=== PATIENT | male | born 1945 | race Caucasian/White ===

== ENCOUNTER 2020-02-28 20:36 | Inpatient (IN) | payer OTHER, MEDICAID, SELFPAY ==
[~2020-02-28] VITALS: Ht 170.2 cm; Wt 108.9 kg
[2020-02-28 20:53] VITALS: BP_SYST 144
[2020-02-28 21:32] LABS: BASOPHILS % (AUTO) 0.6 % (0.0-2.0); EOSINOPHILS # (AUTO) 0.1 K/uL (0.0-0.4); EOSINOPHILS % (AUTO) 1.3 % (0.0-4.0); HEMATOCRIT 41.6 % (36-54); HEMOGLOBIN 12.2 g/dL (14.0-18.0); LYMPHOCYTES # (AUTO) 1.6 K/uL (1.0-5.5); MEAN CORPUSCULAR HEMOGLOBIN 22 pg (27-31); MEAN CORPUSCULAR HGB CONC 29 % (32-36); MEAN CORPUSCULAR VOLUME 75 fL (79.0-98.0); MONOCYTES # (AUTO) 0.7 K/uL (0.0-1.0); MONOCYTES % (AUTO) 7.9 % (1.7-9.3); NEUTROPHILS # (AUTO) 5.9 K/uL (1.8-7.7); NEUTROPHILS % (AUTO) 71.2 % (40.0-70.0); PLATELET COUNT (AUTO) 209 K/uL (130-430); RED BLOOD CELL COUNT(AUTO) 5.53 MIL/uL (4.2-6.2); RED CELL DISTRIBUTION WIDTH 18.7 % (9.0-15.0); WHITE BLOOD COUNT (AUTO) 8.3 K/uL (4.8-10.8)
[2020-02-28] MEDS ORDERED: LISI10TA5 PO (21:34)
[2020-02-28] MEDS ORDERED: LIP20 PO (21:34)
[2020-02-28] MEDS ORDERED: GLIP-201 PO (21:34)
[2020-02-28] MEDS ORDERED: CARV6.2554 PO (21:34)
[2020-02-28] MEDS ORDERED: METF-510 PO (21:34)
[2020-02-28] MEDS ORDERED: WARF5TAB2 PO (21:34)
[2020-02-28] MEDS ORDERED: SPIR25TA6 PO (21:34)
[2020-02-28] MEDS ORDERED: DIPHENHYDRAMINE INJ 50 MG/ML VIAL IVP ONE (21:45)
[2020-02-28 21:48] LABS: INR 1.1 (0.80-1.20); PROTHROMBIN TIME 11.3 SECS (9.5-12.5)
[2020-02-28 22:04] LABS: POTASSIUM 3.6 mmol/L (3.5-5.1); SODIUM SERUM 138 mmol/L (136-145)
[2020-02-28 22:05] LABS: ANION GAP 5 (5-15); CALCIUM 7.7 mg/dL (8.4-11.0); CHLORIDE 98 mmol/L (98-107); CREATININE 0.99 mg/dL (0.55-1.30); GLUCOSE 130 mg/dL (70-99); TOTAL BILIRUBIN 0.4 mg/dL (0.0-1.0); UREA NITROGEN, BLOOD 9 mg/dL (8-21)
[2020-02-28 22:06] LABS: ALANINE AMINOTRANSFERASE 29 U/L (12-78); AMYLASE 79 U/L (0-100); ASPARTATE AMINOTRANSFERASE 29 U/L (10-37); LIPASE 158 U/L (73-393)
[2020-02-29] VITALS (18 sets, daily range): BP systolic 125–177
[2020-02-29 00:14] LABS: BILIRUBIN,URINE NEGATIVE (NEGATIVE); BLOOD, URINE NEGATIVE (NEGATIVE); CLARITY/URINE CLEAR (CLEAR); COLOR,URINE YELLOW (YELLOW); GLUCOSE,URINE NEGATIVE (NEGATIVE); KETONES,URINE NEGATIVE (NEGATIVE); LEUKOCYTE ESTERASE ,URINE NEGATIVE (NEGATIVE); NITRITE, URINE NEGATIVE (NEGATIVE); PROTEIN URINE 2+ (NEGATIVE); UROBILINOGEN,URINE 0.2 (0.2-1.0)
[2020-02-29 00:25] LABS: BACTERIA,URINE FEW /HPF (None Seen); RBC,URINE 0-3 /HPF (0-3); WBC,URINE 0-3 /HPF (0-3)
[2020-02-29] MEDS ORDERED: MORPHINE 2 MG/ML INJ. SYRINGE IVP PRN (01:00)
[2020-02-29] MEDS ORDERED: ALBUTEROL MDI INHALATION 8 GM INH INH PRN ×2 (01:30→04:45)
[2020-02-29] MEDS ORDERED: NACL 0.9% 1,000 ML IV ONE (01:30)
[2020-02-29] MEDS ORDERED: AZITHROMYCIN 500 MG/VIAL (ZITHROMAX) IV ONE (02:33)
[2020-02-29] MEDS: cefTRIAXone 1 GM IVPB PREMIX 50 ML IV SCH (02:43)
[2020-02-29] MEDS: AZITHROMYCIN 500 MG in NS 250 ML IV SCH (02:44)
[2020-02-29] MEDS: ATORVASTATIN 20 MG TABLET PO SCH (09:33)
[2020-02-29] MEDS: CARVEDILOL 6.25 MG TABLET (COREG) PO SCH ×2 (09:34→20:16)
[2020-02-29] MEDS: glipiZIDE XL 5 MG TAB ( GLUCOTROL XL) PO SCH (09:34)
[2020-02-29] MEDS: LISINOPRIL 10 MG TABLET (PRINIVIL) PO SCH (09:34)
[2020-02-29] MEDS ORDERED: FUROSEMIDE 20 MG/2 ML VIAL IVP ONE (15:45)
[2020-02-29] MEDS: INSULIN REGULAR, HUMAN 100 UNITS/ML, 10 ML VIAL (humuLIN R) SUBCUT PRN (20:22)
[2020-03-01] VITALS (19 sets, daily range): BP systolic 86–138
[2020-03-01] MEDS: cefTRIAXone 1 GM IVPB PREMIX 50 ML IV SCH (02:15)
[2020-03-01] MEDS: AZITHROMYCIN 500 MG in NS 250 ML IV SCH (02:52)
[2020-03-01 06:41] LABS: MEAN CORPUSCULAR HEMOGLOBIN 22 pg (27-31); MONOCYTES # (AUTO) 0.6 K/uL (0.0-1.0); WHITE BLOOD COUNT (AUTO) 9.6 K/uL (4.8-10.8)
[2020-03-01 06:50] LABS: BASOPHILS % (AUTO) 0.3 % (0.0-2.0); EOSINOPHILS % (AUTO) 0.3 % (0.0-4.0); HEMATOCRIT 41.9 % (36-54); HEMOGLOBIN 12.1 g/dL (14.0-18.0); LYMPHOCYTES % (AUTO) 10.1 % (20.5-51.5); MEAN CORPUSCULAR HGB CONC 29 % (32-36); MEAN CORPUSCULAR VOLUME 77 fL (79.0-98.0); NEUTROPHILS % (AUTO) 83.3 % (40.0-70.0); PLATELET COUNT (AUTO) 202 K/uL (130-430); RED BLOOD CELL COUNT(AUTO) 5.43 MIL/uL (4.2-6.2); RED CELL DISTRIBUTION WIDTH 18.2 % (9.0-15.0)
[2020-03-01] MEDS: glipiZIDE XL 5 MG TAB ( GLUCOTROL XL) PO SCH (08:41)
[2020-03-01] MEDS: CARVEDILOL 6.25 MG TABLET (COREG) PO SCH ×2 (08:42→21:00)
[2020-03-01] MEDS: LISINOPRIL 10 MG TABLET (PRINIVIL) PO SCH (08:43)
[2020-03-01] MEDS: ATORVASTATIN 20 MG TABLET PO SCH (08:43)
[2020-03-01 09:46] LABS: ALANINE AMINOTRANSFERASE 29 U/L (12-78); ALBUMIN 2.9 g/dL (3.4-4.8); ANION GAP 5 (5-15); ASPARTATE AMINOTRANSFERASE 27 U/L (10-37); CALCIUM 7.3 mg/dL (8.4-11.0); CHLORIDE 99 mmol/L (98-107); CREATININE 1.04 mg/dL (0.55-1.30); GLUCOSE 152 mg/dL (70-99); SODIUM SERUM 140 mmol/L (136-145); TOTAL BILIRUBIN 0.2 mg/dL (0.0-1.0); UREA NITROGEN, BLOOD 12 mg/dL (8-21)
[2020-03-01 09:49] LABS: POTASSIUM 5.8 mmol/L (3.5-5.1)
[2020-03-01] MEDS: INSULIN REGULAR, HUMAN 100 UNITS/ML, 10 ML VIAL (humuLIN R) SUBCUT PRN ×2 (11:47→18:47)
[2020-03-01] MEDS ORDERED: SODIUM POLYSTYRENE SULFONATE 15 GM/60 ML UDBTL PO ONE (12:15)
[2020-03-01] MEDS ORDERED: SODIUM POLYSTYRENE SULFONATE 15 GM/60 ML UDBTL ONE (12:43)
[2020-03-01] MEDS ORDERED: FUROSEMIDE 20 MG/2 ML VIAL IVP ONE (13:15)
[2020-03-01] MEDS ORDERED: ONDANSETRON HCL 4 MG/2 ML VIAL IVP PRN (13:15)
[2020-03-01] MEDS ORDERED: ONDANSETRON HCL 4 MG/2 ML VIAL ONE (14:07)
[2020-03-01] MEDS ORDERED: FUROSEMIDE 20 MG/2 ML VIAL ONE (14:08)
[2020-03-01] MEDS ORDERED: fentaNYL CITRATE/PF 100 MCG/2 ML AMP ONE (15:52)
[2020-03-01] MEDS ORDERED: MORPHINE 4 MG/ML INJ. SYRINGE ONE (15:54)
[2020-03-01] MEDS ORDERED: FUROSEMIDE 40 MG/4 ML VIAL IVP ONE (16:00)
[2020-03-01] MEDS ORDERED: ETOMIDATE 20 MG/ 10 ML VIAL (AMIDATE) IVP ONE (16:10)
[2020-03-01] MEDS ORDERED: VECURONIUM BROMIDE 10 MG/VIAL (NORCURON) IV ONE (16:10)
[2020-03-01] MEDS ORDERED: SUCCINYLCHOLINE CHLORIDE 20 MG/ML(QUELICIN) IVP ONE (16:10)
[2020-03-01] MEDS ORDERED: NOREPINEPHRINE BITARTRATE 4 MG in NS 246 ML IV PRN (16:15)
[2020-03-01] MEDS ORDERED: SODIUM POLYSTYRENE SULFONATE 15 GM/60 ML UDBTL NG ONE (16:15)
[2020-03-01] MEDS ORDERED: COMMUNICATION ORDER XX ONE (16:30)
[2020-03-01] MEDS: PROPOFOL DRIP 100 ML IV PRN ×2 (18:58→22:31)
[2020-03-01] MEDS: FUROSEMIDE 40 MG/4 ML VIAL IVP SCH (22:29)
[2020-03-01] MEDS ORDERED: D5W 1,000 ML IV PRN (22:46)
[2020-03-01] MEDS ORDERED: DEXTROSE 50% JECT 50 ML DISP.SYRIN IVP PRN (23:00)
[2020-03-01] MEDS ORDERED: GLUCOSE 15 GM GEL (in 37.5 GM TUBE) PO PRN (23:00)
[2020-03-02] VITALS (32 sets, daily range): BP systolic 95–176
[2020-03-02] MEDS: DOPamine PREMIX 250 ML IV PRN (01:09)
[2020-03-02] MEDS: cefTRIAXone 1 GM IVPB PREMIX 50 ML IV SCH (01:12)
[2020-03-02] MEDS ORDERED: HEPARIN SODIUM,PORCINE 5000 UNITS/ML VIAL IVP ONE ×2 (01:30)
[2020-03-02] MEDS ORDERED: HEPARIN SODIUM,PORCINE 2000 UNITS/0.4 ML BOLUS IVP PRN ×2 (01:30→08:00)
[2020-03-02] MEDS ORDERED: HEPARIN SODIUM,PORCINE 3000 UNITS/0.6 ML BOLUS IVP PRN ×2 (01:30→08:00)
[2020-03-02] MEDS: AZITHROMYCIN 500 MG in NS 250 ML IV SCH (01:36)
[2020-03-02] MEDS: HEPARIN 25,000 UNITS/D5W 250ML 250 ML IV PRN ×2 (02:08→21:08)
[2020-03-02 08:41] LABS: BASOPHILS % (AUTO) 0.2 % (0.0-2.0); EOSINOPHILS # (AUTO) 0.1 K/uL (0.0-0.4); EOSINOPHILS % (AUTO) 0.7 % (0.0-4.0); HEMOGLOBIN 11.5 g/dL (14.0-18.0); LYMPHOCYTES # (AUTO) 0.8 K/uL (1.0-5.5); LYMPHOCYTES % (AUTO) 9.9 % (20.5-51.5); MEAN CORPUSCULAR HEMOGLOBIN 22 pg (27-31); MEAN CORPUSCULAR HGB CONC 29 % (32-36); MEAN CORPUSCULAR VOLUME 75 fL (79.0-98.0); MONOCYTES # (AUTO) 0.7 K/uL (0.0-1.0); MONOCYTES % (AUTO) 8.2 % (1.7-9.3); NEUTROPHILS # (AUTO) 6.6 K/uL (1.8-7.7); PLATELET COUNT (AUTO) 151 K/uL (130-430); RED BLOOD CELL COUNT(AUTO) 5.18 MIL/uL (4.2-6.2); RED CELL DISTRIBUTION WIDTH 17.7 % (9.0-15.0); WHITE BLOOD COUNT (AUTO) 8.2 K/uL (4.8-10.8)
[2020-03-02] MEDS ORDERED: BISACODYL 10 MG/SUPPOSITORY RC ONE (08:45)
[2020-03-02 08:51] LABS: ANION GAP 4 (5-15); CALCIUM 7.5 mg/dL (8.4-11.0); CHLORIDE 100 mmol/L (98-107); CREATININE 1.19 mg/dL (0.55-1.30); GLUCOSE 92 mg/dL (70-99); POTASSIUM 3.2 mmol/L (3.5-5.1); SODIUM SERUM 143 mmol/L (136-145); UREA NITROGEN, BLOOD 15 mg/dL (8-21)
[2020-03-02 08:59] LABS: ALANINE AMINOTRANSFERASE 23 U/L (12-78); ALBUMIN 2.3 g/dL (3.4-4.8); ASPARTATE AMINOTRANSFERASE 24 U/L (10-37); TOTAL BILIRUBIN 0.6 mg/dL (0.0-1.0)
[2020-03-02] MEDS: glipiZIDE XL 5 MG TAB ( GLUCOTROL XL) PO SCH (09:00)
[2020-03-02] MEDS: FUROSEMIDE 40 MG/4 ML VIAL IVP SCH ×2 (09:36→20:54)
[2020-03-02] MEDS: PANTOPRAZOLE SODIUM 40 MG/VIAL (PROTONIX) IVP SCH (09:36)
[2020-03-02] MEDS: ATORVASTATIN 20 MG TABLET PO SCH (09:37)
[2020-03-02] MEDS: PROPOFOL DRIP 100 ML IV PRN ×5 (09:55→22:42)
[2020-03-02] MEDS: MORPHINE 4 MG/ML INJ. SYRINGE IVP PRN (20:57)
[2020-03-03] VITALS (29 sets, daily range): BP systolic 104–198
[2020-03-03] MEDS: MORPHINE 4 MG/ML INJ. SYRINGE IVP PRN ×3 (01:47→19:54)
[2020-03-03] MEDS: PROPOFOL DRIP 100 ML IV PRN ×5 (01:48→14:07)
[2020-03-03] MEDS: DOPamine PREMIX 250 ML IV PRN (01:49)
[2020-03-03] MEDS: AZITHROMYCIN 500 MG in NS 250 ML IV SCH (01:49)
[2020-03-03] MEDS: cefTRIAXone 1 GM IVPB PREMIX 50 ML IV SCH (01:50)
[2020-03-03] MEDS ORDERED: PROPOFOL DRIP 100 ML IV ONE (05:00)
[2020-03-03 06:56] LABS: BASOPHILS % (AUTO) 0.2 % (0.0-2.0); EOSINOPHILS # (AUTO) 0.1 K/uL (0.0-0.4); EOSINOPHILS % (AUTO) 0.8 % (0.0-4.0); HEMATOCRIT 39.6 % (36-54); HEMOGLOBIN 11.8 g/dL (14.0-18.0); LYMPHOCYTES # (AUTO) 1.1 K/uL (1.0-5.5); LYMPHOCYTES % (AUTO) 12.7 % (20.5-51.5); MEAN CORPUSCULAR HEMOGLOBIN 22 pg (27-31); MEAN CORPUSCULAR HGB CONC 30 % (32-36); MEAN CORPUSCULAR VOLUME 74 fL (79.0-98.0); MONOCYTES # (AUTO) 0.9 K/uL (0.0-1.0); MONOCYTES % (AUTO) 9.6 % (1.7-9.3); NEUTROPHILS # (AUTO) 6.9 K/uL (1.8-7.7); NEUTROPHILS % (AUTO) 76.7 % (40.0-70.0); PLATELET COUNT (AUTO) 163 K/uL (130-430); RED BLOOD CELL COUNT(AUTO) 5.34 MIL/uL (4.2-6.2); WHITE BLOOD COUNT (AUTO) 8.9 K/uL (4.8-10.8)
[2020-03-03 07:09] LABS: ALANINE AMINOTRANSFERASE 16 U/L (12-78); ALBUMIN 2.3 g/dL (3.4-4.8); ANION GAP 4 (5-15); ASPARTATE AMINOTRANSFERASE 25 U/L (10-37); CALCIUM 7.6 mg/dL (8.4-11.0); CHLORIDE 97 mmol/L (98-107); CREATININE 1.25 mg/dL (0.55-1.30); GLUCOSE 179 mg/dL (70-99); SODIUM SERUM 141 mmol/L (136-145); THYROID STIMULATING HORMONE 1.77 uIu/mL (0.36-3.74); TOTAL BILIRUBIN 0.7 mg/dL (0.0-1.0); UREA NITROGEN, BLOOD 13 mg/dL (8-21)
[2020-03-03] MEDS ORDERED: POTASSIUM CHLORIDE 20 MEQ TAB.PRT.SR PO ONE (08:00)
[2020-03-03] MEDS ORDERED: *LOVENOX 1MG/KG Q12H/PHARMACY XX ONE (08:00)
[2020-03-03 08:07] LABS: CHOLESTEROL 116 mg/dL (<200); HDL CHOLESTEROL 36 mg/dL (>45); LDL CHOLESTEROL 61 mg/dL (<100); TRIGLYCERIDES 122 mg/dL (30-150)
[2020-03-03] MEDS: ENOXAPARIN SODIUM 100 MG/ML SYRINGE SUBCUT SCH ×2 (08:40→22:02)
[2020-03-03] MEDS: glipiZIDE XL 5 MG TAB ( GLUCOTROL XL) PO SCH (08:40)
[2020-03-03] MEDS: THEOPHYLLINE ANHYDROUS 200 MG CAP.ER.24H PO SCH ×2 (08:40→21:55)
[2020-03-03] MEDS: ATORVASTATIN 20 MG TABLET PO SCH (08:40)
[2020-03-03] MEDS: PANTOPRAZOLE SODIUM 40 MG/VIAL (PROTONIX) IVP SCH (08:41)
[2020-03-03] MEDS ORDERED: KCL 40 mEq in 100 mL (PREMIX) 100 ML IV ONE (17:30)
[2020-03-03] MEDS ORDERED: OLANZapine IntraMuscular 10 MG VIAL (FOR I.M. INJECTION ONLY) IM ONE (19:15)
[2020-03-03] MEDS: metroNIDAZOLE 500 mg/NS 100 ML IV SCH (21:55)
[2020-03-03] MEDS: FUROSEMIDE 20 MG/2 ML VIAL IVP SCH (21:56)
[2020-03-03] MEDS ORDERED: FUROSEMIDE 20 MG/2 ML VIAL ONE (22:16)
[2020-03-04] VITALS (21 sets, daily range): BP systolic 144–173
[2020-03-04] MEDS: cefTRIAXone 1 GM IVPB PREMIX 50 ML IV SCH (02:51)
[2020-03-04 07:21] LABS: BASOPHILS % (AUTO) 0.2 % (0.0-2.0); EOSINOPHILS # (AUTO) 0.1 K/uL (0.0-0.4); HEMATOCRIT 38.8 % (36-54); HEMOGLOBIN 11.6 g/dL (14.0-18.0); LYMPHOCYTES # (AUTO) 0.7 K/uL (1.0-5.5); LYMPHOCYTES % (AUTO) 10.3 % (20.5-51.5); MEAN CORPUSCULAR HEMOGLOBIN 22 pg (27-31); MEAN CORPUSCULAR HGB CONC 30 % (32-36); MEAN CORPUSCULAR VOLUME 74 fL (79.0-98.0); MONOCYTES # (AUTO) 0.7 K/uL (0.0-1.0); NEUTROPHILS # (AUTO) 5.3 K/uL (1.8-7.7); NEUTROPHILS % (AUTO) 78.5 % (40.0-70.0); PLATELET COUNT (AUTO) 156 K/uL (130-430); RED BLOOD CELL COUNT(AUTO) 5.28 MIL/uL (4.2-6.2); RED CELL DISTRIBUTION WIDTH 17.8 % (9.0-15.0); WHITE BLOOD COUNT (AUTO) 6.8 K/uL (4.8-10.8)
[2020-03-04 07:37] LABS: ALANINE AMINOTRANSFERASE 19 U/L (12-78); ALBUMIN 2.5 g/dL (3.4-4.8); ANION GAP 6 (5-15); ASPARTATE AMINOTRANSFERASE 25 U/L (10-37); C-REACTIVE PROTEIN QUANT 10.6 mg/dL (0-0.5); CALCIUM 7.5 mg/dL (8.4-11.0); CHLORIDE 96 mmol/L (98-107); CREATININE 1.01 mg/dL (0.55-1.30); GLUCOSE 121 mg/dL (70-99); POTASSIUM 3.1 mmol/L (3.5-5.1); SODIUM SERUM 139 mmol/L (136-145); TOTAL BILIRUBIN 0.7 mg/dL (0.0-1.0); UREA NITROGEN, BLOOD 12 mg/dL (8-21)
[2020-03-04] MEDS: PANTOPRAZOLE SODIUM 40 MG/VIAL (PROTONIX) IVP SCH (08:27)
[2020-03-04] MEDS: ATORVASTATIN 20 MG TABLET PO SCH (08:27)
[2020-03-04] MEDS: THEOPHYLLINE ANHYDROUS 200 MG CAP.ER.24H PO SCH ×2 (08:28→21:14)
[2020-03-04] MEDS: metroNIDAZOLE 500 mg/NS 100 ML IV SCH ×2 (08:29→21:13)
[2020-03-04] MEDS ORDERED: ALBUTEROL SULFATE 0.083% 2.5 MG/3 ML VIAL.NEB INH PRN (08:30)
[2020-03-04] MEDS: FUROSEMIDE 20 MG/2 ML VIAL IVP SCH (08:30)
[2020-03-04] MEDS: ENOXAPARIN SODIUM 100 MG/ML SYRINGE SUBCUT SCH ×2 (08:31→21:14)
[2020-03-04] MEDS: glipiZIDE XL 5 MG TAB ( GLUCOTROL XL) PO SCH (08:31)
[2020-03-04] MEDS ORDERED: BISACODYL 5 MG TABLET.DR (DULCOLAX) PO ONE (09:00)
[2020-03-04] MEDS: DOCUSATE SODIUM 100 MG/10 ML UDC PO SCH ×2 (09:07→21:00)
[2020-03-04] MEDS ORDERED: KCL 40 mEq in 100 mL (PREMIX) 100 ML IV ONE (10:00)
[2020-03-04 10:50] LABS: ERYTHROCYTE SEDIMENTATION RATE 31 MM/HR (0-15)
[2020-03-05] MEDS: cefTRIAXone 1 GM IVPB PREMIX 50 ML IV SCH (01:49)
[2020-03-05 06:17] LABS: BASOPHILS % (AUTO) 0.4 % (0.0-2.0); EOSINOPHILS # (AUTO) 0.1 K/uL (0.0-0.4); HEMATOCRIT 39.3 % (36-54); HEMOGLOBIN 11.7 g/dL (14.0-18.0); LYMPHOCYTES # (AUTO) 0.6 K/uL (1.0-5.5); LYMPHOCYTES % (AUTO) 9.7 % (20.5-51.5); MEAN CORPUSCULAR HEMOGLOBIN 22 pg (27-31); MEAN CORPUSCULAR HGB CONC 30 % (32-36); MEAN CORPUSCULAR VOLUME 74 fL (79.0-98.0); MONOCYTES # (AUTO) 0.5 K/uL (0.0-1.0); MONOCYTES % (AUTO) 7.9 % (1.7-9.3); NEUTROPHILS # (AUTO) 5.4 K/uL (1.8-7.7); PLATELET COUNT (AUTO) 139 K/uL (130-430); RED BLOOD CELL COUNT(AUTO) 5.33 MIL/uL (4.2-6.2); RED CELL DISTRIBUTION WIDTH 17.7 % (9.0-15.0); WHITE BLOOD COUNT (AUTO) 6.6 K/uL (4.8-10.8)
[2020-03-05 06:29] LABS: ALANINE AMINOTRANSFERASE 26 U/L (12-78); ALBUMIN 2.5 g/dL (3.4-4.8); ANION GAP 8 (5-15); ASPARTATE AMINOTRANSFERASE 40 U/L (10-37); C-REACTIVE PROTEIN QUANT 7.7 mg/dL (0-0.5); CALCIUM 7.6 mg/dL (8.4-11.0); CHLORIDE 95 mmol/L (98-107); CREATININE 0.91 mg/dL (0.55-1.30); GLUCOSE 114 mg/dL (70-99); SODIUM SERUM 136 mmol/L (136-145); TOTAL BILIRUBIN 0.6 mg/dL (0.0-1.0); UREA NITROGEN, BLOOD 10 mg/dL (8-21)
[2020-03-05 06:39] LABS: POTASSIUM 2.9 mmol/L (3.5-5.1)
[2020-03-05] MEDS ORDERED: POTASSIUM CHLORIDE 20 MEQ TAB.PRT.SR PO ONE ×2 (07:00→11:00)
[2020-03-05 07:59] LABS: ERYTHROCYTE SEDIMENTATION RATE 30 MM/HR (0-15)
[2020-03-05 08:00] VITALS: BP_SYST 156
[2020-03-05] MEDS: POTASSIUM CHLORIDE 20 MEQ/PKT PACKET PO SCH ×2 (09:00→21:04)
[2020-03-05] MEDS: ATORVASTATIN 20 MG TABLET PO SCH (09:00)
[2020-03-05] MEDS: glipiZIDE XL 5 MG TAB ( GLUCOTROL XL) PO SCH (09:00)
[2020-03-05] MEDS: DOCUSATE SODIUM 100 MG/10 ML UDC PO SCH ×2 (09:00→21:04)
[2020-03-05] MEDS: THEOPHYLLINE ANHYDROUS 200 MG CAP.ER.24H PO SCH ×2 (09:01→21:03)
[2020-03-05] MEDS: metroNIDAZOLE 500 mg/NS 100 ML IV SCH ×2 (09:02→21:13)
[2020-03-05] MEDS: PANTOPRAZOLE SODIUM 40 MG/VIAL (PROTONIX) IVP SCH (09:07)
[2020-03-05] MEDS: SPIRONOLACTONE 25 MG TABLET (ALDACTONE) PO SCH (11:25)
[2020-03-05] MEDS: FUROSEMIDE 40 MG/4 ML VIAL IVP SCH (11:25)
[2020-03-05] MEDS: APIXABAN 2.5 MG TABLET PO SCH ×2 (11:27→21:03)
[2020-03-05 12:00] VITALS: BP_SYST 144
[2020-03-05 17:08] VITALS: BP_SYST 125
[2020-03-05 20:00] VITALS: BP_SYST 134
[2020-03-05] MEDS: INSULIN REGULAR, HUMAN 100 UNITS/ML, 10 ML VIAL (humuLIN R) SUBCUT PRN ×2 (21:07→21:09)
[2020-03-06 00:43] VITALS: BP_SYST 141
[2020-03-06] MEDS: cefTRIAXone 1 GM IVPB PREMIX 50 ML IV SCH (02:03)
[2020-03-06] MEDS: INSULIN REGULAR, HUMAN 100 UNITS/ML, 10 ML VIAL (humuLIN R) SUBCUT PRN (06:04)
[2020-03-06 06:31] LABS: ALANINE AMINOTRANSFERASE 38 U/L (12-78); ALBUMIN 2.2 g/dL (3.4-4.8); ANION GAP 3 (5-15); ASPARTATE AMINOTRANSFERASE 56 U/L (10-37); CALCIUM 7.3 mg/dL (8.4-11.0); CHLORIDE 101 mmol/L (98-107); CREATININE 0.96 mg/dL (0.55-1.30); GLUCOSE 117 mg/dL (70-99); POTASSIUM 3.4 mmol/L (3.5-5.1); SODIUM SERUM 140 mmol/L (136-145); TOTAL BILIRUBIN 0.4 mg/dL (0.0-1.0); UREA NITROGEN, BLOOD 10 mg/dL (8-21)
[2020-03-06 07:38] LABS: BASOPHILS % (AUTO) 0.4 % (0.0-2.0); EOSINOPHILS # (AUTO) 0.1 K/uL (0.0-0.4); EOSINOPHILS % (AUTO) 2.3 % (0.0-4.0); HEMATOCRIT 36.6 % (36-54); LYMPHOCYTES # (AUTO) 0.9 K/uL (1.0-5.5); LYMPHOCYTES % (AUTO) 16.4 % (20.5-51.5); MEAN CORPUSCULAR HEMOGLOBIN 22 pg (27-31); MEAN CORPUSCULAR HGB CONC 29 % (32-36); MEAN CORPUSCULAR VOLUME 74 fL (79.0-98.0); MONOCYTES # (AUTO) 0.6 K/uL (0.0-1.0); MONOCYTES % (AUTO) 11.4 % (1.7-9.3); NEUTROPHILS # (AUTO) 3.7 K/uL (1.8-7.7); NEUTROPHILS % (AUTO) 69.5 % (40.0-70.0); PLATELET COUNT (AUTO) 125 K/uL (130-430); RED BLOOD CELL COUNT(AUTO) 4.94 MIL/uL (4.2-6.2); RED CELL DISTRIBUTION WIDTH 17.6 % (9.0-15.0); WHITE BLOOD COUNT (AUTO) 5.4 K/uL (4.8-10.8)
[2020-03-06 07:50] LABS: HEMOGLOBIN 10.8 g/dL (14.0-18.0)
[2020-03-06 08:00] VITALS: BP_SYST 172
[2020-03-06] MEDS: glipiZIDE XL 5 MG TAB ( GLUCOTROL XL) PO SCH (08:11)
[2020-03-06] MEDS: PANTOPRAZOLE SODIUM 40 MG/VIAL (PROTONIX) IVP SCH (08:11)
[2020-03-06] MEDS: DOCUSATE SODIUM 100 MG/10 ML UDC PO SCH (08:11)
[2020-03-06] MEDS: APIXABAN 2.5 MG TABLET PO SCH (08:11)
[2020-03-06] MEDS: POTASSIUM CHLORIDE 20 MEQ/PKT PACKET PO SCH (08:11)
[2020-03-06] MEDS: THEOPHYLLINE ANHYDROUS 200 MG CAP.ER.24H PO SCH (08:12)
[2020-03-06] MEDS: ATORVASTATIN 20 MG TABLET PO SCH (08:12)
[2020-03-06] MEDS: SPIRONOLACTONE 25 MG TABLET (ALDACTONE) PO SCH (08:12)
[2020-03-06] MEDS: FUROSEMIDE 40 MG/4 ML VIAL IVP SCH (08:13)
[2020-03-06] MEDS: metroNIDAZOLE 500 mg/NS 100 ML IV SCH (08:14)
[2020-03-06 09:29] VITALS: BP_SYST 172
[2020-03-06] MEDS ORDERED: FURO-149 PO (11:50)
[2020-03-06] MEDS ORDERED: ALBMDI INH (11:50)
[2020-03-06 12:00] VITALS: BP_SYST 125
[2020-03-06 14:37] VITALS: BP_SYST 144
[2020-03-06 16:20] VITALS: BP_SYST 144
== END 2020-03-06 16:20 | disposition home health service (06) | DRG 871 ==
LOC: SED 20:36 → STU 02-29 00:45 → EEVIPCON 02-29 00:45 → SIC 02-29 03:14 → STU 03-01 01:26 → SIC 03-01 14:24 → STU 03-04 18:54
PROVIDERS: ADMIT Internal Medicine Hospice and Palliative Medicine; ATTEND Internal Medicine Hospice and Palliative Medicine
PROC: 5A1945Z Respiratory Ventilation, 24-96 Consecutive Hours (ICD-10-PCS; principal; 2020-03-01)
PROC: 0BH18EZ Insertion of Endotracheal Airway into Trachea, Via Natural or Artificial Opening Endoscopic (ICD-10-PCS; 2020-03-01)
PROC: 02HV33Z Insertion of Infusion Device into Superior Vena Cava, Percutaneous Approach (ICD-10-PCS; 2020-03-01)
PROC: B548ZZA Ultrasonography of Superior Vena Cava, Guidance (ICD-10-PCS; 2020-03-01)
DX: A41.9 Sepsis, unspecified organism (principal); J18.9 Pneumonia, unspecified organism; J96.01 Acute respiratory failure with hypoxia; J96.02 Acute respiratory failure with hypercapnia; R65.21 Severe sepsis with septic shock; E43 Unspecified severe protein-calorie malnutrition; I50.23 Acute on chronic systolic (congestive) heart failure; J91.8 Pleural effusion in other conditions classified elsewhere; E87.2 Acidosis; I48.20 Chronic atrial fibrillation, unspecified; J44.0 Chronic obstructive pulmonary disease with (acute) lower respiratory infection; R18.8 Other ascites; I50.1 Left ventricular failure, unspecified; E78.5 Hyperlipidemia, unspecified; F10.10 Alcohol abuse, uncomplicated; K59.00 Constipation, unspecified; K74.60 Unspecified cirrhosis of liver; K80.20 Calculus of gallbladder without cholecystitis without obstruction; Z20.828 Contact with and (suspected) exposure to other viral communicable diseases; I11.0 Hypertensive heart disease with heart failure; E87.6 Hypokalemia; E66.01 Morbid (severe) obesity due to excess calories; E11.65 Type 2 diabetes mellitus with hyperglycemia; E83.51 Hypocalcemia; Z91.19 Patient's noncompliance with other medical treatment and regimen; Z79.01 Long term (current) use of anticoagulants; Z79.899 Other long term (current) drug therapy; Z82.5 Family history of asthma and other chronic lower respiratory diseases; Z87.891 Personal history of nicotine dependence; Z68.37 Body mass index [BMI] 37.0-37.9, adult
CPT/HCPCS: 36415; 36600; 71045; 71250-TC; 74018; 80053; 80061; 81000-TC; 82140-TC; 82150-TC; 82803-TC; 82962; 83605; 83690-TC; 83735-TC; 83880; 84443-TC; 84484; 85025; 85610-TC; 85651-TC; 85730-TC; 86140; 86710; 87070-TC; 87081; 87205-TC; 92610-GN; 93005; 93306; 94002; 94003; 94640; 96365; 96366; 96367; 97110-GP; 97116-GP; 99285; C1751; C9113; G0378; J0330; J0456; J0696; J1265; J1644; J1650; J1815; J1940; J2270; J2405; J2704; J3010; J3480; J3490; J7030; J7050; U0002